=== PATIENT | female | born 1985 | race Caucasian/White ===

== ENCOUNTER 2023-01-29 18:08 | Inpatient (IN) ==
[2023-01-29] MEDS ORDERED: Promethazine INJ(RESTRICTED) 25 MG/ML 1 ml VIAL IV PRN (18:24)
[2023-01-29] MEDS ORDERED: Nalbuphine 10 MG/ML 1 ML VIAL IV PRN (18:24)
[2023-01-29] MEDS ORDERED: Lidocaine 1% VIAL 10 MG/ML 30 ML VIAL INJ PRN (18:24)
[2023-01-29] MEDS ORDERED: Dinoprostone 10 MG VAG.SUPP VAGINAL ONE (18:24)
[2023-01-29] MEDS ORDERED: Lactated Ringers 1000 ml BAG 1,000 ML IV ONE (18:24)
[2023-01-29] MEDS ORDERED: Buffered Lidocaine 1% SYRIN 1 ml INTRADERM ONE (18:24)
[2023-01-29] MEDS ORDERED: Lactated Ringers 1000 ml BAG 1,000 ML IV SCH (19:00)
[2023-01-29 20:24] LABS: Urine Benzodiazepine Screen None Detected (None Detect); Urine Cannabinoids Screen None Detected (None Detect); Urine Opiates Screen None Detected (None Detect)
[2023-01-30] MEDS ORDERED: miSOPROStol 100 mcg TAB VAGINAL ONE ×3 (09:07→17:55)
[2023-01-31] MEDS ORDERED: miSOPROStol 100 mcg TAB VAGINAL ONE ×2 (10:00→13:54)
[2023-01-31] MEDS ORDERED: Lidocaine 2% JELLY 6 ML Topical TOPICAL ONE (16:47)
[2023-01-31 22:13] LABS: ABS Basophils 0.1 10^3/uL (0.0-0.1); ABS Lymphocytes 1.8 10^3/uL (1.0-4.8); ABS Monocytes 0.5 10^3/uL (0.0-0.9); ABS Neutrophils 6.1 10^3/uL (1.5-7.6); ABS Nucleated RBC 0.01 10^3/ul; Eosinophil % 0.2 %; Hemoglobin 11.4 g/dL (11.5-14.3); Lymphocyte % 21.4 %; Mean Corpuscular Hemoglobin 24.1 pg (27-33); Mean Corpuscular Hgb Conc 32.6 g/dL (31-36); Mean Corpuscular Volume 73.8 fL (80-97); Mean Platelet Volume 10.2 fL (7.5-11.2); Nucleated Red Blood Cells % 0.1 /100 WBC (0.0-0.4); Platelet Count 166 10^3/uL (150-450); Red Blood Count 4.74 10^6/uL (3.63-4.92); Red Cell Distribution Width 13.5 % (12-17); White Blood Count 8.5 10^3/uL (3.8-11.8)
[2023-01-31] MEDS ORDERED: OBEPIDURAL (200 ML) 200 ML EPIDURAL ONE (22:25)
[2023-01-31] MEDS ORDERED: Lidocaine 1.5% EPI 1:200,000 30 ML SDV ONE (22:25)
[2023-01-31] MEDS ORDERED: Sodium Citrate/Citric Acid LIQ 15 ML UDC PO PRN (23:33)
[2023-01-31] MEDS ORDERED: Phenylephrine 40 mcg/mL 10mL (400mcg) SYRINGE IV PUSH PRN (23:33)
[2023-01-31] MEDS ORDERED: Lactated Ringers 1000 ml BAG 500 ML IV PRN (23:33)
[2023-01-31] MEDS ORDERED: Lactated Ringers 1000 ml BAG 1,000 ML IV ONE (23:33)
[2023-01-31] MEDS: Lactated Ringers 1000 ml BAG 1,000 ML IV SCH (23:50)
[2023-02-01] MEDS: OBEPIDURAL (200 ML) 200 ML EPIDURAL SCH ×2 (00:06→13:44)
[2023-02-01 02:09] LABS: Urine Appearance Clear; Urine Bilirubin Negative (Negative); Urine Blood Negative (Negative); Urine Color Colorless; Urine Glucose Negative (Negative); Urine Ketones Negative (Negative); Urine Nitrite Negative (Negative); Urine Protein Negative (Negative); Urine Specific Gravity 1.003 (1.002-1.030); Urine Urobilinogen Negative (Negative)
[2023-02-01] MEDS: Oxytocin in LR 20,000 MILLI.UNIT/1,000 ML BAG IV SCH ×4 (02:46→21:42)
[2023-02-01] MEDS: Lactated Ringers 1000 ml BAG 1,000 ML IV SCH (11:40)
[2023-02-01] MEDS ORDERED: Methylergonovine 0.2 mg AMPULE 1 ml AMP ONE (15:58)
[2023-02-01 16:52] LABS: ABS Basophils 0.1 10^3/uL (0.0-0.1); ABS Lymphocytes 1.3 10^3/uL (1.0-4.8); ABS Monocytes 0.5 10^3/uL (0.0-0.9); ABS Neutrophils 4.8 10^3/uL (1.5-7.6); ABS Nucleated RBC 0.01 10^3/ul; Eosinophil % 0.1 %; Hematocrit 26.5 % (35-45); Hemoglobin 8.6 g/dL (11.5-14.3); Lymphocyte % 19.3 %; Mean Corpuscular Hgb Conc 32.3 g/dL (31-36); Mean Corpuscular Volume 74.3 fL (80-97); Nucleated Red Blood Cells % 0.1 /100 WBC (0.0-0.4); Platelet Count 141 10^3/uL (150-450); Red Blood Count 3.57 10^6/uL (3.63-4.92); Red Cell Distribution Width 13.6 % (12-17); White Blood Count 6.6 10^3/uL (3.8-11.8)
[2023-02-01] MEDS ORDERED: Dibucaine 1% OINT 28.35 GM TUBE PR PRN (16:59)
[2023-02-01] MEDS ORDERED: Methylergonovine 0.2 mg AMPULE 1 ml AMP IM ONE (16:59)
[2023-02-01] MEDS ORDERED: Glycerin ADULT 2.4 gm SUPP PR PRN (16:59)
[2023-02-01] MEDS ORDERED: Witch Hazel PAD JAR TOPICAL PRN (16:59)
[2023-02-01] MEDS ORDERED: Lactated Ringers 1000 ml BAG 1,000 ML IV SCH (17:00)
[2023-02-01] MEDS ORDERED: Oxytocin in LR 20,000 MILLI.UNIT/1,000 ML BAG IV SCH (17:00)
[2023-02-01] MEDS ORDERED: ceFAZolin 2 GM in NS PREMIX 2 GM/100 ML BAG IVPB ONE (17:27)
[2023-02-02] MEDS: Oxytocin in LR 20,000 MILLI.UNIT/1,000 ML BAG IV SCH (00:12)
[2023-02-02 01:40] LABS: Hematocrit 25.1 % (35-45); Hemoglobin 8.4 g/dL (11.5-14.3); Mean Corpuscular Hemoglobin 25.6 pg (27-33); Mean Corpuscular Hgb Conc 33.4 g/dL (31-36); Mean Corpuscular Volume 76.7 fL (80-97); Platelet Count 115 10^3/uL (150-450); Red Blood Count 3.28 10^6/uL (3.63-4.92); Red Cell Distribution Width 15.6 % (12-17); White Blood Count 12.6 10^3/uL (3.8-11.8)
[2023-02-02 07:38] LABS: ABS Lymphocytes 1.6 10^3/uL (1.0-4.8); ABS Monocytes 0.5 10^3/uL (0.0-0.9); ABS Neutrophils 7.5 10^3/uL (1.5-7.6); Eosinophil % 0.3 %; Hematocrit 24.6 % (35-45); Hemoglobin 8.3 g/dL (11.5-14.3); Lymphocyte % 16.7 %; Mean Corpuscular Hemoglobin 25.8 pg (27-33); Mean Corpuscular Hgb Conc 33.7 g/dL (31-36); Mean Corpuscular Volume 76.5 fL (80-97); Mean Platelet Volume 10.1 fL (7.5-11.2); Platelet Count 119 10^3/uL (150-450); Red Blood Count 3.22 10^6/uL (3.63-4.92); Red Cell Distribution Width 15.4 % (12-17); White Blood Count 9.7 10^3/uL (3.8-11.8)
[2023-02-03 07:33] VITALS: BP 120/54
== END 2023-02-03 13:14 | disposition home or self-care (01) | DRG 560 ==
LOC: MCHOBOUT 18:08 → MCHOB 18:56
PROVIDERS: ADMIT Obstetrics & Gynecology; ATTEND Obstetrics & Gynecology